=== PATIENT | female | born 1985 | race Caucasian/White ===

== ENCOUNTER 2017-07-07 18:13 | Emergency (ER) | payer MEDICAID ==
[~2017-07-07] VITALS: Ht 160 cm; Wt 59.0 kg
[2017-07-07 18:36] VITALS: BP 120/72
[2017-07-07] MEDS ORDERED: SOMA250 MG PO (19:35)
[2017-07-07] MEDS ORDERED: IBUPROFEN600 MG ORAL (19:35)
[2017-07-07] MEDS ORDERED: ROBAXIN-750750 MG PO (19:35)
--- NOTE | 2017-07-07 19:35 | Emergency Room Report ---
History of Present Illness General Chief Complaint: General Complaint Source: Patient Present Illness HPI 31 YO Female presents to the ED c/o 02/01 in severity right sided neck pain that radiates into the clavicle and right shoulder region described as "soreness, and tightness" Reports history of a cervical muscle strain with spasm several months ago. Patient denies appreciable trauma or fall. 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 Denies headache, fevers, chills, photophobia. Denies nausea, vomiting, headache. Denies numbness tingling or loss of sensation or gross motor movements of the extremities, incontinence of bowel or bladder. Denies CP, Palpitations, LOC, AMS , dizziness, Changes in Vision, Sensation, paresthesias, or a sudden severe headache. Allergies: Coded Allergies: No Known Allergies (Unverified , 07/07/17) Patient History Past Medical History: see triage record Past Surgical History: none Pertinent Family History: none Last Menstrual Period: 06/25/17 Immunizations: UTD Reviewed Nursing Documentation: PMH: Agreed, PSxH: Agreed Nursing Documentation-PMH Past Medical History: No Stated History Review of Systems All Other Systems: negative except mentioned in HPI Physical Exam Vital Signs Date Time Temp Pulse Resp B/P (MAP) Pulse Ox O2 Delivery O2 Flow Rate FiO2 07/07/17 18:18 98.2 63 18 120/72 98 Room Air Sp02 EP Interpretation: reviewed, normal General Appearance: no apparent distress, alert, GCS 15, non-toxic Head: normocephalic, atraumatic Eyes: bilateral eye normal inspection, bilateral eye PERRL ENT: hearing grossly normal, normal voice Neck: full range of motion, no bony tend, tender lateral - right ttp, FROM Respiratory: chest non-tender, lungs clear, normal breath sounds, no wheezing, speaking full sentences Cardiovascular #1: regular rate, rhythm, no edema, normal capillary refill Rectal: deferred Genitourinary: normal inspection Musculoskeletal: back normal, gait/station normal, normal range of motion, non- tender Neurologic: alert, oriented x3, responsive, motor strength/tone normal, sensory intact, normal gait, speech normal, grossly normal Psychiatric: judgement/insight normal Skin: normal color, no rash, warm/dry, well hydrated Medical Decision Making PA Attestation Dr. Hayden is my supervising Physician whom patient management has been discussed with. Diagnostic Impression: Primary Impression: Cervical strain, acute Qualified Codes: S16.1XXA - Strain of muscle, fascia and tendon at neck level , initial encounter ER Course 31 YO Female presents to the ED c/o 02/01 in severity right sided neck pain that radiates into the clavicle and right shoulder region described as "soreness, and tightness" Reports history of a cervical muscle strain with spasm several months ago. Patient denies appreciable trauma or fall. 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 Denies headache, fevers, chills, photophobia. Denies nausea, vomiting, headache. Denies numbness tingling or loss of sensation or gross motor movements of the extremities, incontinence of bowel or bladder. Denies CP, Palpitations, LOC, AMS , dizziness, Changes in Vision, Sensation, paresthesias, or a sudden severe headache. Ddx considered but are not limited to Fracture, dislocation, contusion, epidural abscess, Sprain/Strain/Spasm, Paravertebral artery dissection just to name a few Vital signs: are WNL, pt. is afebrile H&PE are most consistent with muscle spasm /cervical strain ORDERS: none required at this time. ED INTERVENTIONS: none required at this time. -I do not identify an emergent condition at this time. With current presentation , pt. is stable for close outpatient follow up and conservative treatment. D/ w pt. to return promptly to ED with worsening or new symptoms.- Pt. (and or responsible alliance party) verbalizes' understanding and agreement with proposed treatment plan.proposed treatment plan. DISCHARGE: At this time pt. is stable for d/c to home. Will provide printed patient care instructions, and any necessary prescriptions. Care plan and follow up instructions have been discussed with the patient prior to discharge. Last Vital Signs Date Time Temp Pulse Resp B/P (MAP) Pulse Ox O2 Delivery O2 Flow Rate FiO2 07/07/17 18:36 98.2 87 18 120/72 98 Room Air Disposition: HOME, SELF-CARE Condition: Stable Scripts Ibuprofen* (MOTRIN*) 600 Mg Tablet 600 MG ORAL THREE TIMES A DAY, #30 TAB 0 Refills Prov: Treasure Hardy P.A. 07/07/17 Carisoprodol (SOMA) 250 Mg Tablet 250 MG PO QHS Y for For Pain, #1 TAB Prov: Treasure Hardy 07/07/17 Methocarbamol* (ROBAXIN-750*) 750 Mg Tablet 750 MG PO QID for 7 Days, #28 TAB 0 Refills Prov: Treasure Hardy 07/07/17 Departure Forms: Return to Work Return to Work in (Days): 1 Return to Work Date: Jul 09, 2017 Work Restrictions: No Heavy Lifting Other Restrictions: light duty x 1 week, limited use of right arm. Return to Full Activity: Jul 16, 2017 Patient Instructions: Muscle Cramps and Spasms, [id number], Muscle Strain, [id number], Vertebral Artery Dissection Additional Instructions: Take medications as directed. Follow up with a Primary Care Provider in 3-5 days, even if your symptoms have resolved. --Please review list of primary care clinics, if you do not already have a primary care provider Return sooner to ED if new symptoms occur, or current symptoms become worse. Do not drink alcohol, drive, or operate heavy machinery while taking Muscle Relaxers as this may cause drowsiness. - Please note that this Emergency Department Report was dictated using [employer] 2 advanced operator technology software, occasionally this can lead to erroneous entry secondary to interpretation by the dictation equipment. Treasure Hardy Jul 07, 2017 19:34
[2017-07-07 19:45] VITALS: BP 120/72
[2017-07-07 19:45] LABS: APPEARANCE,URINE CLEAR; BILIRUBIN, URINE NEGATIVE (NEGATIVE); COLOR,URINE PALE YELLOW; GLUCOSE, URINE (UA) NEGATIVE (NEGATIVE); KETONES,URINE NEGATIVE (NEGATIVE); LEUKOCYTE ESTERASE ,URINE NEGATIVE (NEGATIVE); NITRITE,URINE NEGATIVE (NEGATIVE); PH,URINE 7 (4.5-8.0); PROTEIN,URINE NEGATIVE (NEGATIVE); UROBILINOGEN,URINE NORMAL MG/DL (0.0-1.0)
== END 2017-07-07 19:45 | disposition home or self-care (01) ==
LOC: EMR 18:35
DX: S16.1XXA Strain of muscle, fascia and tendon at neck level, initial encounter (principal); X50.9XXA Other and unspecified overexertion or strenuous movements or postures, initial encounter; Y92.89 Other specified places as the place of occurrence of the external cause
CPT/HCPCS: 81003; 99284